=== PATIENT | female | born 1985 | race Caucasian/White ===

== ENCOUNTER → 2016-07-31 | Outpatient (CLI) | payer BC, OTHER | LOC: RAD 17:57 | DX: M54.2 Cervicalgia (principal); M54.9 Dorsalgia, unspecified; R05 Cough; M47.814 Spondylosis without myelopathy or radiculopathy, thoracic region | CPT/HCPCS: 71020; 72050; 72072; 72110 ==

== ENCOUNTER 2016-09-02 08:30 | Emergency (ER) | payer BC, OTHER ==
[2016-09-02 09:01] LABS: HEMOGLOBIN 16.6 gm/dl (12.3-15.3); RED BLOOD COUNT 5.35 M/UL (4.00-5.10); WHITE BLOOD COUNT 5.2 K/UL (4.5-11.0)
[2016-09-02 09:24] LABS: BUN/CREATININE RATIO 13 (0-10)
== END 2016-09-02 11:40 | disposition home or self-care (01) ==
LOC: ER1 08:30
PROVIDERS: Specialist/Technologist Athletic Trainer
DX: J18.9 Pneumonia, unspecified organism (principal); F17.200 Nicotine dependence, unspecified, uncomplicated; M54.5 Low back pain; G89.29 Other chronic pain; Z88.6 Allergy status to analgesic agent; Z79.899 Other long term (current) drug therapy
CPT/HCPCS: 36415; 80053; 81001; 82150; 83690; 85025; 87086; 96365; 96375; 99284; J1956; J2270; J2405; J7050; Q9962

== ENCOUNTER → 2020-05-19 | Outpatient (CLI) | payer OTHER ==
[~2020-05-19] MED LIST: AMOXICILLIN500 MG PO; AMOXICILLIN875 MG PO; BUSPAR 5MG TABLE5 MG PO; IBUPROFEN600 MG PO; MIRALAX 119 GR119 GM PO; NORFLEX 100 MG100 MG PO; PYRIDIUM100 MG PO; ROBITUSSIN AC480 ML PO; VIBRAMYCIN100 MG PO; VISTARIL25 MG PO; Voltaren Gel 1 % TOP; ZITHROMAX250 MG PO; ZOFRAN ODT 4 MG4 MG PO; ZOFRAN4 MG PO
[2020-05-19 11:16] LABS: HEMOGLOBIN 16.3 gm/dl (12.3-15.3); RED BLOOD COUNT 5.34 M/UL (4.00-5.10); WHITE BLOOD COUNT 5.2 K/UL (4.5-11.0)
[2020-05-19 11:39] LABS: BUN/CREATININE RATIO 11 (0-10)
[2020-05-20 08:14] LABS: HIV SCREEN 4TH GENERATION WRFX Non Reactive (Non Reactive)
[2020-05-20 09:14] LABS: HBSAG SCREEN Negative (Negative); HEP A AB, IGM Negative (Negative); HEP B CORE AB, IGM Negative (Negative); HEP C VIRUS AB <0.1 (0.0-0.9)
[2020-05-20 21:11] LABS: HEPATITIS C QUANTITATION HCV Not Detected IU/mL (.)
== END ==
LOC: LAB 10:05
PROVIDERS: Nurse Practitioner Psychiatric/Mental Health
DX: F11.20 Opioid dependence, uncomplicated (principal)
CPT/HCPCS: 36415; 80053; 80074; 84703; 85025; 87389; 87522

== ENCOUNTER 2020-12-31 09:57 | Emergency (ER) | payer OTHER ==
[2020-12-31 11:32] LABS: HEMOGLOBIN 15.6 gm/dl (12.3-15.3); RED BLOOD COUNT 5.01 M/UL (4.00-5.10); WHITE BLOOD COUNT 5.4 K/UL (4.5-11.0)
[2020-12-31 12:20] LABS: BUN/CREATININE RATIO 17 (0-10)
[2020-12-31] MEDS ORDERED: MEDROL DOSEPAK 24 MG PO (13:25)
[2020-12-31] MEDS ORDERED: DELSYM30 MG/5 ML PO (13:25)
[2020-12-31] MEDS ORDERED: NORFLEX 100 MG100 MG PO (13:25)
[2020-12-31] MEDS ORDERED: Voltaren Gel 1 % TOP (13:25)
== END 2020-12-31 13:29 | disposition home or self-care (01) ==
LOC: ER1 09:57
PROVIDERS: Physician Assistant
DX: R07.9 Chest pain, unspecified (principal); J44.9 Chronic obstructive pulmonary disease, unspecified; F17.200 Nicotine dependence, unspecified, uncomplicated; Z90.710 Acquired absence of both cervix and uterus; Z88.8 Allergy status to other drugs, medicaments and biological substances
CPT/HCPCS: 71045; 80053; 82550; 82553; 83874; 84484; 85025; 85379; 93005; 99285